=== PATIENT | male | born 1995 | race African-American/Black ===

== ENCOUNTER 2017-03-21 22:40 | Emergency (ER) | payer SELFPAY ==
--- NOTE | 2017-03-21 23:07 | ED Physician Chart ---
ED Chief Complaint/HPI - Patient Information Date Seen:: 03/21/17 Time Seen:: 22:49 Chief Complaint:: Chest pain since about 7:30 pm today. History of Present Illness:: Pt was seen immediately by me when I was notified about his presence at the ER. Brought in by private auto because of onset of chest pain since about 7:30 pm today. Pt states that he had h/o [place] 03/2016 and was hospitalized in [place] with 2 stents placed. Pt also had prior h/o myocarditis and pericarditis. Pt started having constant L sided chest pain since about 193 today with radiation to L shoulder, characterized as sharp/pressure. No associated dyspnea or diaphoresis, ? palpitation. No ankle edema. Pt states that his chest pain can be aggravated with exertion. Pt has not taken any ASA or sublingual NTG today. On exam: WDWN male in NAD. Breathes comfortably, speaks clearly, and ambulates without difficulty. HEENT Unremarkable with normal conjunctiva Neck supple. Carotid 2+/2+. No JVD. COR RRR without m/g/r Lungs Clear. No rales or wheeze. Ext No c/c/e. Neuro A and O x 3. No focal findings. 12 lead EKG done 2247 became available for me to review at 2249. It revealed probable NSR with VR 88. cannot r/o acute IMI and ASMI. Pt has been put on school lunch monitor. ASA 325 mg po and sublingual NTG 0.4 mg ordered. Nursing staff was instructed to contact [facility] immediately. I spoke with Dr. Bauer (?sp) at [facility] at about 2314 on the phone after 12 EKG had been faxed to him. He concurred with plan to have pt transferred there via 911 ACLS. He accepted pt for transfer for further cardiac evaluation/treatment. Nursing staff was instructed to call [facility] immediately after my discussion with Dr. Bauer. [facility] arrived at about 2326. Pt remained stable and was in no distress. He breathes comfortably. EKG findings and management have been reviewed and discussed with pt. All questions answered. [facility] departed at 2335. Allergies:: Allergies Allergy/AdvReac Type Severity Reaction Status Date / Time No Known Allergies Allergy Verified 03/21/17 22:56 Historian:: Patient Review:: Nurse's Note Reviewed Family Medical History - Family Member Mother History Unknown: Yes ED Septic Shock - . Is Septic Shock (SBP<90, OR Lactate>4 mmol\L) present?: No ED Reassessment (Disposition) - Patient Disposition Discharge/Transfer:: Acute Care (other hosp) ([facility]. (Higher level of care, [facility])) Accepting Physician:: Dr. Bauer (?sp) Transport Method:: ACLS ([facility].) Time:: 23:35 Condition at Disposition:: Stable, Improved ED Discharge Plan - Patient Disposition Admit/Discharge/Transfer: TRANSFER TO ACUTE HOSP Condition at Disposition: Unchanged
[2017-03-21 23:30] LABS: % BASOPHILS 0.1 % (0.0-2.0); % EOSINOPHILS 0.9 % (0.0-5.0); % LYMPHOCYTES 26.7 % (20.0-50.0); % MONOCYTES 4.1 % (2.0-10.0); % NEUTROPHILS 68.2 % (40.0-80.0); HEMATOCRIT 39.2 % (41.0-60); MEAN CORPUSCULAR HGB CONC 33.3 pg (28.0-36.0); MEAN PLATELET VOLUME 7.5 fl; NEUTROPHILE ABSOLUTE 6.4 Th/cmm (1.8-8.0); PLATELET COUNT 406 Th/cmm (150-400); RED BLOOD COUNT 4.83 Mil/cmm (4.30-5.70); WHITE BLOOD COUNT 9.4 Th/cmm (4.8-10.8)
[2017-03-21 23:47] LABS: ANION GAP 11.4 (7.0-16.0); BUN - UREA NITROGEN 15 mg/dL (7-25); BUN/CREATININE RATIO 16.7; CALCIUM SERUM 9.6 mg/dL (8.6-10.3); CARBON DIOXIDE 25.4 mEq/L (21.0-31.0); CHLORIDE 100 mEq/L (98-107); CREATININE - SERUM 0.9 mg/dL (0.7-1.3); GLUCOSE 145 mg/dL (70-105); POTASSIUM SERUM 3.8 mEq/L (3.5-5.1); SODIUM SERUM 133 mEq/L (136-145)
[2017-03-21 23:49] LABS: INR 1.11 (0.5-1.4); PROTHROMBIN TIME (TEST) 11.6 SECONDS (9.5-11.5)
== END 2017-03-21 23:35 | disposition short-term general hospital (02) ==
LOC: ER 22:40
DX: R07.9 Chest pain, unspecified (principal)
CPT/HCPCS: 36415-UA; 80048-TC; 82550-TC; 84484-TC; 85025-TC; 85379-TC; 85610-TC; 93005